=== PATIENT | female | born 1970 | race Two or more races ===

== ENCOUNTER 2016-08-01 22:35 | Emergency (ER) | payer BC ==
[~2016-08-01] VITALS: Ht 170.2 cm; Wt 68.0 kg
[2016-08-01] MEDS ORDERED: Ketorolac 30mg Inj IV ONE (23:15)
[2016-08-01] MEDS ORDERED: HYDROmorphone 1mg/ml Carpuject IVP ONE (23:15)
[2016-08-01 23:54] LABS: MEAN CORPUSCULAR HEMOGLOBIN 33.2 PG (27.0-31.0); MEAN CORPUSCULAR HGB CONC 34.8 G/DL (32.0-36.0); MEAN CORPUSCULAR VOLUME 95 FL (80-99); MEAN PLATELET VOLUME 9.7 FL (6.5-10.1); PLATELET COUNT 149 K/UL (150-450); RED BLOOD COUNT 4.13 M/UL (4.20-5.40); RED CELL DISTRIBUTION WIDTH 11.8 % (11.6-14.8)
[2016-08-02 00:28] LABS: CALCIUM 8.7 mg/dL (8.6-10.2); CARBON DIOXIDE 23 mEQ/L (20-30); CREATININE 0.7 mg/dL (0.5-0.9); GLOMERULAR FILTRATION RATE > 60 mL/min (>60); HEMOLYSIS 484
[2016-08-02 00:29] LABS: ANION GAP 17 (5-15); CHLORIDE 96 mEQ/L (98-107); POTASSIUM 4.6 mEQ/L (3.4-4.9); SODIUM 136 mEQ/L (135-145)
[2016-08-02] MEDS ORDERED: ZOFRAN ODT4 MG ORAL (01:31)
--- NOTE | 2016-08-02 01:32 | Emergency Room Report ---
History of Present Illness General Chief Complaint: Pain Source: Patient, Friend Present Illness HPI Is a 46-year-old female with a history of fibroid uterus. This afternoon she had uterine embolization done by Dr. Sanabria in the office. She presents with chief complaint of pelvic pain. Unable to keep her medication down. She also has vomiting. Pain is 10 out of 10. Localized to the pelvic area. No bleeding. Her DrRegina told to come to the ER. Allergies: Coded Allergies: No Known Allergies (Unverified , 08/01/16) Patient History Past Medical History: see triage record, old chart reviewed Past Surgical History: other Pertinent Family History: none Social History: Denies: smoking Last Menstrual Period: 3 WEEKS AGO Now: No : 3 Immunizations: other Reviewed Nursing Documentation: PMH: Agreed, PSxH: Agreed Nursing Documentation-PMH Past Medical History: No Stated History Review of Systems Eye: Denies: blurred vision, eye pain ENT: Denies: ear pain, nose congestion, throat swelling Respiratory: Denies: cough, shortness of breath Cardiovascular: Denies: chest pain, palpitations Gastrointestinal: Reports: abdominal pain, Denies: diarrhea, nausea, vomiting Musculoskeletal: Denies: back pain, joint pain Skin: Denies: rash Neurological: Denies: headache, numbness Endocrine: Denies: increased thirst, increased urine Hematologic/Lymphatic: Denies: easy bruising All Other Systems: negative except mentioned in HPI Physical Exam Vital Signs Date Time Temp Pulse Resp B/P Pulse Ox O2 Delivery O2 Flow Rate FiO2 08/01/16 22:41 98.2 78 18 129/79 99 Room Air vitals normal Sp02 EP Interpretation: reviewed, normal General Appearance: well appearing, no apparent distress, alert Head: normocephalic, atraumatic Eyes: bilateral eye EOMI, bilateral eye PERRL ENT: hearing grossly normal, normal pharynx Neck: full range of motion, supple, no meningismus Respiratory: chest non-tender, lungs clear, normal breath sounds Cardiovascular #1: regular rate, rhythm, no murmur Gastrointestinal: normal bowel sounds, non tender, no mass, no organomegaly, no bruit, non-distended Musculoskeletal: back normal, gait/station normal, normal range of motion Psychiatric: mood/affect normal Skin: warm/dry Medical Decision Making Diagnostic Impression: Primary Impression: Pelvic pain Additional Impression: Post-operative pain ER Course Patient with postoperative pain. Pain is well-controlled now. She is tolerating her medication. I discussed the case with her INSURANCE COUNSEL who agreed with the treatment plan. We'll discharge home. No need for CT. I see no evidence of infectious cause of perforation. Lab Results Impression labs normal Last Vital Signs Date Time Temp Pulse Resp B/P Pulse Ox O2 Delivery O2 Flow Rate FiO2 08/01/16 22:41 98.2 78 18 129/79 99 Room Air Status: improved Disposition: HOME, SELF-CARE Condition: Stable Scripts Ondansetron Odt* (ZOFRAN ODT*) 4 Mg Tab.rapdis 4 MG ORAL Q6H Y for Nausea & Vomiting, #20 TAB 0 Refills Prov: GABRIEL WHITMORE M.D. 08/02/16 Referrals: NON PHYSICIAN (PCP) Additional Instructions: Follow up with Dr. Sanabria as scheduled. Return if worse. GABRIEL WHITMORE M.D. August 02, 2016 01:32
[2016-08-02 01:49] VITALS: BP_SYST 114; BP_SYST 129; BP_DIAS 70; BP_DIAS 79
== END 2016-08-02 01:45 | disposition home or self-care (01) ==
LOC: EMR 23:20
DX: R10.9 Unspecified abdominal pain (principal); G89.18 Other acute postprocedural pain; R11.10 Vomiting, unspecified
CPT/HCPCS: 36415; 80048; 85025; 96374; 96375; 99284; J1170; J1885; J2405